=== PATIENT | female | born 2005 ===

== ENCOUNTER 2024-10-01 15:25 | Outpatient (CLI) | payer MEDICAID, SELFPAY | END 2024-10-01 15:26 | disposition home or self-care (01) | LOC: AMB 10-03 10:10 | PROVIDERS: Visit Provider Emergency Medicine | DX: R55 Syncope and collapse (principal); R42 Dizziness and giddiness | CPT/HCPCS: A0425; A0427 ==

== ENCOUNTER 2024-10-01 15:57 | Emergency (ER) | payer MEDICAID, SELFPAY ==
--- OUTSIDE RECORDS SUMMARY | 2024-08-29 11:05 | XMS_ITS | Encounter Summary ---
Author Organization [facility] Address [address] [place] [address] Care Team Providers Care Dietary Clerk Name Role Phone Gerald Page MD Primary Care Provider [phone] Encounter Details Date Type Department Care Team (Latest Contact Info) Description 08/29/2024 11:05 AM CDT Telemedicine [facility] [address] [place] [address] Asaf Arteaga DO [address] [place], [place] [id number] Attention deficit hyperactivity disorder (ADHD), combined type, moderate (HRC) (Primary Dx); Anxiety (HRC); Other specified depressive episodes Social History Tobacco Use Types Packs/Day Years Used Date Smoking Tobacco: Never Passive Smoke Exposure: Never Smokeless Tobacco: Never Alcohol Use Standard Drinks/Week Comments No 0 (1 standard drink = 0.6 oz pur e alcohol) PHQ-2 Answer Date Recorded PHQ-2 Score 5 07/24/2024 Financial Resource Strain Answer Date R ecorded Is it hard for you to pay fo r the very basics like food, housing, medical care or heating? No 10/10/2023 Food Insecurity Answer Date Recorded Does your food run out before you have the money to buy more? No 10/10/2023 Transportation Needs Answer Date Record ed Does a lack of transportatio n keep you from your medical appointments or from getting your medications? No 024 Comments No Sex and Gender Information Value Date Recorded Sex Assigned at Not on file Legal Sex Female 1:51 PM CDT Gender Identity Not on file Sexual Orientation Not on file documented as of this encounter Progress Notes * Asaf Arteaga DO - 08/29/2024 11:05 AM CDT Outpatient Psychiatry Progress Note: Chief Complaint: I have questions about the medication HPI: -Binta is a 19 y.o. 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 She denies any medical history. -The patient is seen alone via tele-video and is in agreement to this arrangement. Pt was recently referred by therapy, after getting an ADHD dx in January 2024. -The patient reports taking Adderall XR 10-15 mg q.a.m. daily. She recently had been taking Zoloft (ineffective) and atomoxetine (ineffective) at low dosing which were stopped on her own over the past 1-2 months, in which patient does have a history of compliance issues with consistency taking daily medications. -The patient reports the biggest concern is her medication management. -The patient denies issues with pain. -The patient reports her sleep is adequate in quality/duration, although delayed sleep onset has been an issue on days taking Adderall XR. -The patient denies SI/HI/AVH. Patient denies any intent/plan and reports having a safety plan in place. -She denies symptoms of micki, social phobia, OCD, agoraphobia, or panic attacks. -The patient says appetite is adequate and eats 3 consistent meals/day. -The patient denies a history of substance or Etoh abuse. Allergies: No Known Allergies PHQ-9: 07/24/2024 9:00 AM 02/15/2024 11:20 AM 10/10/2023 12:20 PM PHQ-9 PHQ-9 Score Total 19 12 4 Q1: Loss of Int/Pleas 2 2 1 Q2: Depressed mood 3 0 1 Q3: Sleep problems 1 2 1 Q4: Tired/Low Energy 2 2 0 Q5: Appetite change 1 0 0 Q6: Feelings of failure 3 3 1 Q7: Concentration Prob 3 3 0 Q8: Slow or Restless 2 0 0 Q9: Thought Self Harm 2 0 0 Date PHQ9 was completed 07/24/2024 CAGE-AID: 0/4 MENTAL STATUS EXAMINATION: Appearance: Appears stated age, Well-groomed, and Casual Sensorium: Alert Orientation: Is oriented to person, place and time Psychomotor: No agitation or retardation Neuromotor: No tics, tremors, cogwheeling, abnormal movements Speech: Regular rhythm, rate, tone, volume Language: Clear, articulation, no accents, St Helenian as first language Mood (subjective report): Okay, managing Affect (objective appearance): Congruent Thought Process (Associations): Goal Directed, linear Thought content: Without delusions, suicidal or homicidal ideation Perception: No evidence of auditory or visual hallucinations Abstraction: Intact Attention & Concentration: Focused, intact Memory (recent/remote): Intact immediate, recent, and remote Knowledge: Average Judgment and Insight: Fair Diagnostic Impressions: 1. Attention deficit hyperactivity disorder (ADHD), combined type, moderate (HRC) 2. Anxiety (HRC) 3. Other specified depressive episodes Other medical issues: Patient denies Assessment & Plan: -Binta is a 19 y.o. 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 Her biggest concern today is her medication management. Patient reports: Difficulty tolerating side effects to Adderall over the past several months which has been worsening. Patient describes at various dosing issues with dysphagia, abdominal/throat discomfort, increase anxiety, mood lability, and insomnia which have allmade taking Adderall XR at any dose difficult. Discussed medications in depth, and agreed to discontinue Adderall XR and start low-dose Vyvanse given its lower side effect profile. Discussed that patient may also benefit from an SSRI medication in the future (previously taking Zoloft) should mood/anxiety become an issue with taking stimulant medications. We will continue to monitor school performance over the upcoming weeks to months with use of Adderall, along with monitoring for any side effects as we titrate the medication. Discussed the importance of compliance, which previously has been an issue with her use of Zoloft. Patient instructed to take 1-2 days off per week to minimize tolerance building with taking stimulant medications. Binta may benefit from individual therapy, and has been seeing a counselor monthly at [facility] and was highly encouraged to continue. Binta understands and agrees with the plan discussed. Patient appears to be low risk for suicide today. Pt has support with her family and several close friends. Plan: -Start Vyvanse 10-30 mg daily for ADHD. -Discontinue Adderall XR 10-15 mg daily for ADHD. -Discussed the indications, risks, benefits, and possible side effects discussed. Verbal informed consent was received from the patient to make the medication changes described above. Pt is understanding and in agreement to the plan today. -Discussed and recommended abstinence from all alcohol and substances use. Plan to monitor for any changes in consumption. -Discussed therapy and pt will continue with her counselor at [facility]. Plan to discuss and offertherapy at next apt. -Orders placed at this visit- Labs/Tests/Referrals: No orders of the defined types were placed in this encounter. -Reviewed crisis plan including calling 911, or presenting to the APS if in a life threatening crisis. Pt understands the crisis plan and knows to activate it if necessary. -Follow-up appointment scheduled in 4-6 weeks. Patient/family will call with questions, side effects, or clinical worsening. Start time: 11:10 a.m. Stop time: 11:30 a.m. I discussed with the patient/parent that this visit is a telehealth visit that will be billed to their insurance. Reviewed potential benefits, risks and confidentiality of telehealth visits. Confirmed patients' current location and contact information. Developed a safety plan to be used in the event of an emergency or safety concerns. Made contingency plan in the event of technical problems. Explained that the appropriateness of telehealth visits is determined by the provider and that patient may need to be seen in clinic in the future. This visit was conducted via video. Location of clinician: clinic Location of patient: home There are potential benefits and risks of telehealth (video or phone) visits that differ from in-person sessions. Confidentiality still applies for telehealth services. It is important to be in a quiet, private space that is free of distractions (including cell phone or other devices) during the session. In the future, if you need to cancel or change your tele-appointment, you must notify the clinic in advance by phone. In the event of technical problems or safety concerns, let's confirm your current location and the best number to reach you at. We should also agree on a safety plan and we will use the emergency contact on file if we get disconnected and I cannot reach you again. As your provider, I may determine that due to certain circumstances, telehealth no longer appropriate and thatfuture appointments should be in person. Data charges may apply if you are not connected to [employer]. Asaf Arteaga DO documented in this encounter Plan of Treatment Upcoming Encounters Date Type Department Care Team (Late st Contact Info) Description 10/08/2024 4:05 PM CDT Telemedicine [facility] Psychiatry [address] [place] [address] Asaf Arteaga DO [address] [place] [address] documented as of this encounter Visit Diagnoses Diagnosis Attention deficit hyperactivity disorder (ADHD), combined type, moderate (HRC)- Primary Anxiety (HRC) Anxiety state, unspecified Other specified depressive episodes documented in this encounter Care Teams Dietary Clerk Relationship Specialty Start Date End Date Gerald Page MD [address] [place] [address] PCP - General Family Practice 05/31/19 documented as of this encounter
[2024-10-01 16:07] VITALS: BP 98/67; PULSE 82; RESP 18; TEMP 36.6; O2SAT 100; BMI 19.2
[2024-10-01 16:32] VITALS: BP 101/74; BP 108/76; BP 97/73; PULSE 71; PULSE 74; PULSE 81
--- OUTSIDE RECORDS SUMMARY | 2024-10-01 16:48 | XMS_ITS | Encounter Summary ---
Author Organization [facility] Address [address] [place] [address] Care Team Providers Care Film Library Clerk Name Role Phone Gerald Page MD Primary Care Provider [phone] Encounter Details Date Type Department Care Team (Late st Contact Info) Description 09/02/2024 [facility] [address] [place] [address] Asaf Arteaga DO [address] [place] [address] Social History Tobacco Use Types Packs/Day Years [...] on file documented as of this encounter Nursing Notes * Campbell Gray - 09/05/2024 9:14 AM CDT Called and ginny appt for 10/08/24. * Maxwell Adams RN - 09/05/2024 8:24 AM CDT Routing to [place] to attempt to schedule once more. Encounter can be closed once appt made or voicemailleft-thanks! * Ivon Avelar - 09/03/2024 3:06 PM CDT LM to schedule appt end September 2024 * Lydia Howard RN - 09/03/2024 11:43 AM CDT Please schedule pt for follow up appt in 4-6 weeks due to Vyvanse dose adjustment. Can be video. Thank you! * Asaf Arteaga DO - 09/03/2024 11:41 AM CDT Vyvanse Rx sent to pharmacy. Recommend f/u appointment when this prescription is completed in 4-6 weeks. We can further adjust dosing of Vyvanse at that time (as required). PM * Maxwell Adams RN - 09/03/2024 11:37 AM CDT Rx prepared as provider noted. Routing to provider. Requested Prescriptions Pending Prescriptions Disp Refills lisdexamfetamine (VYVANSE) 10 MG capsule 60 Capsule 0 Sig: Take 1-2 Capsules (10-20 mg) by mouth daily. * Chelsea Michael LPN - 09/03/2024 11:09 AM CDT See provider message below. Will route to RN to prepare RX for provider. * Chelsea Michael LPN - 09/03/2024 11:08 AM CDT Asaf Arteaga, DO I would recommend we change the prescription of Vyvanse to 10-20 mg daily (60 tabs of 10 mg). Hopefully the insurance will cover this. We can change the dosing for Binta further at her upcoming appointments. PM * Latisha Issa LPN - 09/02/2024 2:25 PM CDT Images from the original note were not included. Routing to provider to either provide answers to questions below or re-prescribe as patient's insurance only allows Quantity Limit: 2 Quantity per 1 Day. * Chelsea Michael LPN - 09/02/2024 8:41 AM CDT EPA completed and sent for Lisdexamfetamine 10 mg most recent chart notes also sent. Will monitor for outcome. * Chelsea Michael LPN - 09/02/2024 8:31 AM CDT Spoke with Pharmacy. EPA was requested for Lisdexamphetamine. Close previous Adderall XR request. * Latisha Issa LPN - 09/02/2024 7:54 AM CDT EPA initiated. documented in this encounter Plan of Treatment Upcoming Encounters Date Type Department Care Team (Late st Contact Info) Description 10/08/2024 4:[address] [facility] [address] [place] [address] Asaf Arteaga DO [address] [place] [address] documented as of this encounter Visit Diagnoses Not on filedocumented in this encounter Care Teams Film Library Clerk Relationship Specialty Start Date End Date Gerald Page MD [address] [place] [address] PCP - General Family Practice 05/31/19 documented as of this encounter
--- OUTSIDE RECORDS SUMMARY | 2024-10-01 16:48 | XMS_ITS | Clinical Summary ---
Author Organization [facility] Address [address] [place] [address] Care Team Providers Care Head Of Biology Name Role Phone Pcp, No Primary Care Provider Unavailabl e Allergies No known active allergies Social History Tobacco Use Types Packs/Day Years Used Date Smoking Tobacco: Never Assessed Interpersonal Safety Answer Date Record ed Are you being hit, kicked, p ushed or yelled at (see row info)? No 05/16/2024 Interpersonal Safety Abuse 12 - 18 Not on file 05/16/2024 Interpersonal Safety Ambulatory Vulnerability No t on file 05/16/2024 Comments No Sex and Gender Information Value Date Recorded Sex Assigned at Not on file Legal Sex Female 4:29 AM SOCKET PULLER Gender Identity Not on file Sexual Orientation Not on file Last Filed Vital Signs Vital Sign Reading Time Taken Comments Blood Pressure 109/70 05/16/2024 4:50 AM SOCKET PULLER Pulse 83 05/16/2024 4:50 AM SOCKET PULLER Temperature 36.9 C (98.5 F) 05/16/2024 4:50 AM SOCKET PULLER Respiratory Rate 16 05/16/2024 4:50 AM SOCKET PULLER Oxygen Saturation 99% 05/16/2024 4:50 AM SOCKET PULLER Inhaled Oxygen Concentration - - Weight 63.5 kg (140 lb) 05/16/2024 4:50 AM SOCKET PULLER Height 167.6 cm (5' 6) 05/16/2024 4:50 AM SOCKET PULLER Body Mass Index 22.6 05/16/2024 4:50 AM SOCKET PULLER Plan of Treatment Health Maintenance Due Date Last Done Comments Tdap 2014 Depression screening for age 12+ 2015 HIV for age 15-65 2018 HPV series for age 9-26 (1 - 3-dose series) 2018 BMI (ht and wt on same day) for age 18+ 2021 Hepatitis C screening for ag e 18-79 2021 Tetanus booster 2023 COVID-19 vaccine series (2023- season) 2024 03/27/2021, 01/11/2021 Pap test for age 21-65 2024 Influenza Vaccine (Season Ended) 2025 Meningococcal series for age 11-21 Aged Out No longer eligible b ased on patient's age to complete this topic Pneumococcal series for age 6-49 Aged Out No longer eligible b ased on patient's age to complete this topic Insurance [id number] [place] [id number] [place] [id number] Care Teams Head Of Biology Relationship Specialty Start Date End Date Pcp, No . PCP - General 05/16/24
--- OUTSIDE RECORDS SUMMARY | 2024-10-01 16:48 | XMS_ITS | Clinical Summary ---
Author Organization [facility] Address [address] [place] [address] Care Team Providers Care Machine Rug Cleaner Name Role Phone Gerald Page MD Primary Care Provider [phone] Source Comments You are receiving this document as you are listed as the primary care provider,follow-up provider, or the patient has been referred to you for consultation.This is in compliance with the Medicare andNation[facility]'S Hospitalcaid EHR Incentive Program,which states Providers who transition their patient to another setting of careor provider of care or refers their patient to another provider of care shouldprovide summary care record for each transition of care or referral. [employer] Allergies No known active allergies Medications * This document contains information received from the source organization and may not represent a complete record from that organization. cyanocobalamin (VITAMIN B12) 1000 MCG tabletIndicatio ns:Vitamin B12 deficiency (HRC) Take 1 Tablet (1,000 mcg) by mouth daily. 90 Tablet 3 4 Active Cholecalciferol (VITAMIN D) 50 MCG (2000 UT) tabletIndicatio ns:Vitamin D deficiency (HRC) Take 1 Tablet by mouth daily. Start after you finish the once weekly vitamin D capsules. 90 Tablet 3 4 Active amphetamine-dex troamphetamine XR (ADDERALL XR) 5 MG 24 hour release capsule Take 2-3 Capsules (10-15 mg) by mouth daily. 90 Capsule 5 Active lisdexamfetamin e (VYVANSE) 10 MG capsule Take 1-2 Capsules (10-20 mg) by mouth daily. 60 Capsule 5 Active lisdexamfetamin e (VYVANSE) 10 MG capsule Take 1-3 Capsules (10-30 mg) by mouth daily. 90 Capsule 5 09/04/19 25 Discontinu ed(*Med change OR same med OR reorder, new dose/direc tions) Active Problems Problem Noted Date Diagnosed Date Generalized anxiety disorder 07/24/2024 Major depressive disorder, recurrent episode, mo derate 07/24/2024 Other specified depressive episodes 02/21/2024 Attention deficit hyperactiv ity disorder (ADHD), combined type, moderate 02/21/2024 Anxiety 02/21/2024 Leukopenia 09/26/2017 Encounters * This document contains information received from the source organization and may not represent a complete record from that organization. Date Type Department Care Team Description 09/02/2024 [facility] Psychiatry [address] [place] [address] Asaf Arteaga DO 08/29/2024 11:05 AM CDT [facility] Psychiat[facility] [address] [place] [address] Asaf Arteaga DO Attention deficit hyperactivity disorder (ADHD), combined type, moderate (HRC) (Primary Dx); Anxiety (HRC); Other specified depressive episodes 07/10/2024 3:35 PM NON DESTRUCTIVE TESTING SCIENTIST [facility]iat[facility] [address] [place] [address] Asaf Arteaga DO Attention deficit hyperactivity disorder (ADHD), combined type, moderate (HRC) (Primary Dx); Anxiety (HRC); Other specified depressive episodes from Last 3 Months Immunizations Immunization Administration Dates Next Due 9vHPV (Gardasil 9) 06/07/2019,11/07/2017 DTP 2003,2003 HepA Ped/Adol (1-18 yrs) 09/18/2020,06/07/2019 HepB Ped/Adol (0-18 yrs) 03/22/2018,10/13/2017,0 08/28/2017 IPV (Polio) 10/13/2017 Influenza IIV4 (Quadrivalent) 0.5mL (49347) 05/16,03/22/2018 MCV4 Menveo 2m.+ (two vial) 06/07/2019, 8 MMR 03/22/2018,11/07/2017 Measles 2003 OPV, Trivalent (Orimune or tOPV) 2003,06/15 Pfizer Monovalent 12+ Purple Top 03/27/2021,12/15 Td (7+ yrs) 09/25/2018 Td Adult, Unspecified Formulation 09/25/2018 Tdap 10/13/2017 Varicella 03/22/2018,11/07/2017 Family History Medical History Relation Name Comments Cataract Negative Family History Glaucoma Negative Family History Macular Degeneration Negative Family History Retinal Detachment Negative Family History Social History Tobacco Use Types Packs/Day Years Used Date Smoking Tobacco: Never Passive Smoke Exposure: Never Smokeless Tobacco: Never Tobacco Cessation:Counseling Given: Not Answered Alcohol Use Standard Drinks/Week Comments No 0 [...] Sign Reading Time Taken Comments Blood Pressure 101/71 10/30/2023 2:41 PM CDT Pulse 79 10/30/2023 2:41 PM CDT Temperature 36.4 C (97.6 F) 10/30/2023 2:41 PM CDT Respiratory Rate 14 10/30/2023 2:41 PM CDT Oxygen Saturation 100% 10/30/2023 2:41 PM CDT Inhaled Oxygen Concentration - - Weight 52.2 kg (115 lb) 11/28/2023 3:07 PM CDT Height 157.5 cm (5' 2) 11/28/2023 3:07 PM CDT Body Mass Index 21.03 11/28/2023 3:07 PM CDT Plan of Treatment Upcoming Encounters Date Type Department Care Team (Late st Contact Info) Description 10/08/2024 4:05 PM CDT Telemedicine [facility] [address] [place] [address] Asaf Arteaga DO [address] [place] [address] Health Maintenance Due Date Last Done Comments Cervical Cancer Screening Due 2003 MenB Immunization Discussion 2003 COVID-19 Vaccine ( season) 2024 03/27/2021, 01/11/2021 Adult Preventive Visit 10/09/2024 , 09/18/2020, 06/07/2019, Additional history exists Chlamydia 10/09/2024 10/10/2023, 06/07/2019 Influenza Vaccine (Season Ended) 2025 06/07/2019, 03/22/2018 DTaP/Tdap/Td Vaccine (6 - Tdap) 09/25/2028 09/25/2018, 09/25/2018, 10/13/2017, Additional history exists Zoster/Shingles Vaccine (1 of 2) 2053 HIV Screening (Preventive Services) Completed 09/25/2017 Hep C Screening (Preventive Services) Completed 09/25/2017 IPV (Polio) Vaccine Completed 10/13/2017, 2003, 2003 HepB Vaccine Completed 03/22/2018, 06/05/2017, 08/28/2017 Varicella Vaccine Completed 03/22/2018, 11/07/2017 HPV Vaccine Completed 06/07/2019, 11/07/2017 MCV4 Vaccine Completed 06/07/2019, 11/07/2017 HepA Vaccine Completed 09/18/2020, 06/07/2019 Tuberculosis Screening Completed 12/06/2022, 2017 Hib Vaccine Aged Out No longer eligi ble based on patient's age to complete this topic Pneumococcal Vaccine Aged Out No long er eligible based on patient's age to complete this topic Procedures Procedure Name Priority Date/Time Associated Diagnosis Comments CHLAMYDIA & GC, URINE (14 YEARS AND OLDER) Routine 10/10/2023 1:59 PM CDT Routine screening for STI (sexually transmitted infection) TB QUANTIFERON GOLD PLUS Routine 12/06/2022 3:12 PM CDT Screening examination for pulmonary tuberculosis HIV 1/2 AG/AB 4TH GEN Routine 09/25/2017 8:37 AM CDT Health examination of defined subpopulation HEPATITIS C ANTIBODY, WITH REFLEX Routine 09/25/2017 8:37 AM CDT Health examination of defined subpopulation from Last 3 Months or Most Recently Relevant to Health Maintenance Results * Chlamydia & GC, Urine (14 Years and Older) (10/10/2023 1:59 PM CDT) Pathologist [facility] Chlamydia Trachomatis STD Not Detected Not Detected 10/10/2023 11:58 PM CDT [facility] N. gonorrhoeae STD Not Detected Not Detected 10/10/2023 11:58 PM CDT [facility] Urine STD (Urine for STD) Non-blood Collection / Unknown 10/10/2023 1:59 PM CDT 10/10/2023 1:59 PM CDT [facility] - 10/10/2023 11:58 PM CDT Test performed by Relationship Executive Mediated Amplification (TMA). us Darlyn MEANS LAB_1 Final Result [facility] [address] [address], [facility] * HIV 1/2 Ag/Ab 4th Generation (09/25/2017 8:37 AM CDT) HIV 1/2 AG/AB 4thGEN Negative (Non Reactive) [facility] Comment:HIV-1 p24 Ag and HIV -1/HIV-2 Ab not detected. 09/25/2017 8:37 AM CDT 09/25/2017 9:28 AM CDT Narrative [facility] - 09/25/2017 1:31 PM CDT Performed at [facility], [address] [place] [id number] us Josh Barrera Jr., PA-C LAB_1 Final Result Performing Organization Address [facility] de Phone Number [facility] [employer] [phone] * HEPATITIS C AB [[id number]] (09/25/2017 8:37 AM CDT) Pathologist [facility] Anti-HCV Negative (Non Reactive) [facility] Comment: Antibodies to HCV not detected. Does not exclude the possibility of exposure to HCV. 09/25/2017 8:37 AM CDT 09/25/2017 9:28 AM CDT Narrative [facility] - 09/25/2017 1:30 PM CDT Performed at [facility], [address] [place] [id number] us Josh Barrera Jr., LINETTE LAB_1 Final Result Performing Organization Address [facility] de Phone Number [facility] [employer] [phone] from Last 3 Months or Most Recently Relevant to Health Maintenance Insurance [facility] [address] [place] [id number] Care Teams Machine Rug Cleaner Relationship Specialty Start Date End Date Gerald Page MD [address] [place] [address] PCP - General Family Practice 05/31/19
--- OUTSIDE RECORDS SUMMARY | 2024-10-01 16:48 | XMS_ITS | Encounter Summary ---
Author Organization Formerly [facility] Address [address] [place] [address] Care Team Providers Care Harpoon Engagement Planning Operator Name Role Phone Gerald Page MD Primary Care Provider [phone] Encounter Details Date Type Department Care Team (Late Contact Info) Description 09/25/2017 Correspondence None No Primary/Referring, Phy MEDICAL EXAM FOR IMMIGRANT Social History Tobacco Use Types Packs/Day Years Used Date Smoking Tobacco: Never Smokeless Tobacco: Never Alcohol Use Standard Drinks/Week Comments No 0 (1 standard drink = 0.6 oz pur e alcohol) Comments Unknown Sex and Gender Information Value Date Recorded Sex Assigned at Not on file Legal Sex Female 1:51 PM CDT Gender Identity Not on file Sexual Orientation Not on file documented as of this encounter Plan of Treatment Upcoming Encounters Date Type Department Care Team (Late Contact Info) Description 10/08/2024 4:05 PM CDT Telemedicine [facility] [address] [facility] [place] [address] Asaf Arteaga DO [address] [place] [address] documented as of this encounter Visit Diagnoses Not on filedocumented in this encounter Care Teams Harpoon Engagement Planning Operator Relationship Specialty Start Date End Date Gerald Page MD [facility][note 3] [place] [address] PCP - General Family Practice 05/31/19 documented as of this encounter
--- OUTSIDE RECORDS SUMMARY | 2024-10-01 16:48 | XMS_ITS | Encounter Summary ---
Author Organization [facility] Address [address] [place] [address] Care Team Providers Care Cloth Printer Name Role Phone Gerald Page MD Primary Care Provider [phone] Encounter Details Date Type Department Care Team (Latest Contact Info) Description 09/25/[address] [address] El Wang MD MEDICAL EXAM/VACCINATION RECORD Social History Tobacco Use Types Packs/Day Years [...] Info) Description 10/08/2024 4:05 PM CDT Telemedicine [facility] [address] [place] [address] Asaf Arteaga DO [address] [place] [address] documented as of this encounter Visit Diagnoses Not on filedocumented in this encounter Care Teams Cloth Printer Relationship Specialty Start Date End Date Gerald Page MD [address] [place] [id number] PCP - General Family Practice 05/31/19 documented as of this encounter
--- NOTE | 2024-10-01 17:19 | CRLHL7_ITS ---
For Patients: As a result of the Century Cures Act, medical imaging exams and procedure reports are released immediately into your electronic medical record. You may view this report before your referring provider. If you have questions, please contact your health care provider. INDICATION: Headaches. TECHNIQUE: CT of the head without contrast. Coronal and sagittal reformats are included. COMPARISON: None. FINDINGS: No CT evidence of acute cortical infarct. No loss of leslie white matter differentiation. No hyperdense vessels to suggest intracranial thrombus. No acute intracranial hemorrhage. No mass effect or midline shift. No hydrocephalus or extra-axial collections. White matter is within normal limits for age. No acute osseous abnormalities. Mastoid air cells and paranasal sinuses are clear. Normal soft tissues. IMPRESSION: IMPRESSION:1. No CT evidence of acute cortical infarct. No acute intracranial hemorrhage. No other acute intracranial findings. Please note that all CT scans at this facility use dose modulation, iterative reconstruction, and/or weight-based dosing when appropriate to reduce radiation dose to as low as reasonably achievable. Dictated by Ricky Christian MD @ 10/01/2024 5:56:39 PM (Electronically Signed)
--- NOTE | 2024-10-01 17:20 | ED_ITS ---
HPI - Syncope General Date Seen: 10/01/24 Chief Complaint: Syncope/Fainted Stated Complaint: Syncope Time Seen by Provider: 10/01/24 16:21 Source: patient and other (Friends) Mode of arrival: EMS Limitations: no limitations History of Present Illness HPI narrative: Patient is a 39-year-old female with no pertinent medical problems presenting to the emergency department for syncopal episode. She is brought in by EMS. She states she was sleeping all day but says this is normal because she has a on even sleep schedule. Due to this she has not eaten or drink much today. Her states her friend came to check on her because she was not answering her phone and mother friend was there patient passed out. She states she has not remember exactly what happened but states she thinks she was only out for bed. States she felt like she is back to normal pretty quickly. Has drinking some fluids since then. Does states she has a mild headache at this time. Does not think she had the headache prior to her fall. Has had the symptoms before and was told she had low iron. I spoke to her friend once they arrive to states that there was a check on the patient because she was answering her phone. When she got there the patient seemed to be acting off and was leaning against her bed. The patient then fell over and landed on the ground. The friend does not know the patient hit her head or not. Says the patient was down for only able and minute and then was back to normal pretty quickly. States she is acting normally at this time. Patient denies chest pain, shortness of breath, weakness, numbness, dizziness, abdominal pain, fevers, chills. Not aware of any recent sick contacts. Related Data Home Medications ?Medication ?Instructions ?Recorded ?Confirmed No Known Home Medications 10/01/2409/13 Allergies Allergy/AdvReac Type Severity Reaction Status Date / Time No Known Drug Allergies Allergy Verified 10/01/24 16:07 Review of Systems Status of ROS: Reports: 10 or more systems reviewed and unremarkable except as noted in History and below [facility] Social History Do you use any of these nicotine containing products: None Second hand tobacco smoke exposure: No How often do you have a drink containing alcohol: never AUDIT-C Alcohol total score: 0 Non-prescribed substance use: denies use Exam Narrative: Exam Narrative: Const: Well-nourished, Well-developed, in mild distress Eyes: PERRL, no conjunctival injection, and symmetrical lids HENT: Atraumatic external nose and ears. Moist mucous membranes. Head atraumatic normocephalic Neck: Symmetric, trachea midline, No thyromegaly. CVS: RRR, No murmurs or gallops. Peripheral pulses 2+ and equal in all extremities RESP: Unlabored respiratory effort. Clear to auscultation bilaterally. GI: Nontender/Nondistended, No rebound or guarding. MSK:Extremities w/o deformity, Normal Active ROM Skin: Warm, Dry. No rashes or lesions. Neuro: Normal Muscle tone, No focal neurological deficits. Psych: Awake, Alert, & Oriented x3. Appropriate mood and affect. Const: Vital Signs, click to edit/add: Vital Signs - 24 hr 10/01/24 16:07 10/01/24 16:32 Temperature 97.9 F Pulse Rate [Pulse Oximeter] 82 Pulse Rate [orthos tatic lying Pulse Oximeter] 71 Pulse Rate [orthos tatic sitting Puls e Oximeter] 74 Pulse Rate [orthos tatic standing Pul se Oximeter] 81 Respiratory Rate 18 Blood Pressure [Ri ght Upper Arm] 98/67 Blood Pressure [or thostatic lying] 97/73 Blood Pressure [or thostatic sitting] 101/74 Blood Pressure [or thostatic standing ] 108/76 Pulse Oximetry 100 Oxygen Delivery Me thod Room Air Course Vital Signs Vital signs: Initial Vital Signs Temperature 97.9 F 10/01/24 16:07 Temperature Source Temporal Artery Scan 10/01/24 16:07 Pulse Rate 82 10/01/24 16:07 Respiratory Rate 18 10/01/24 16:07 Blood Pressure 98/67 10/01/24 16:07 Blood Pressure Mean 77 10/01/24 16:07 Pulse Oximetry 100 10/01/24 16:07 Oxygen Delivery Method Room Air 10/01/24 16:07 Vital Signs Temperature 97.9 F 10/01/24 16:07 Pulse Rate 82 10/01/24 16:07 Respiratory Rate 18 10/01/24 16:07 Blood Pressure 98/67 10/01/24 16:07 Pulse Oximetry 100 10/01/24 16:07 Oxygen Delivery Method Room Air 10/01/24 16:07 Temperature 97.9 F 10/01/24 16:07 Pulse Rate 71 10/01/24 16:32 Respiratory Rate 18 10/01/24 16:07 Blood Pressure 97/73 10/01/24 16:32 Pulse Oximetry 100 10/01/24 16:07 Oxygen Delivery Method Room Air 10/01/24 16:07 MDM - Syncope MDM Narrative Medical decision making narrative: Patient is a 19-year-old female presenting for what sounds like a syncopal episode. She did hit her head and does have a mild headache. Will do CT scan for better evaluation. Will also order an EKG and troponin for evaluation of a possible arrhythmia or other cardiac abnormalities. BMP, CBC, magnesium all also ordered. Patient's EKG shows no concerning abnormalities. Lab work within normal limits. CT scan reviewed by myself the radiologist shows no concerning findings. Orthostatic vital signs showed no concerning abnormalities. He continues to do well at this time. I believe for syncopal episodes likely due to her decreased oral intake today. Believe he is safe for discharge. She is agreeable to this plan Lab Data Labs: Lab Results 10/01/24 Range/Units 17:35 WBC 5.72 (4.50-11.00) K/uL RBC 4.54 (4.00-5.20) m/uL Hgb 13.3 (12.0-16.0) gm/dL Hct 41.5 (33.0-51.0) % MCV 91 (80-100) fL MCH 29 (26-34) pg MCHC 32 (32-36) gm/dL RDW Coeff of Delaney 12.6 (11.5-15.5) % Plt Count 212 (140-440) K/uL Neut % (Auto) 69.8 (42.0-72.0) % Lymph % (Auto) 22.0 (20-44) % Monona % (Auto) 7.0 (0.0-11.0) % Eos % (Auto) 0.7 (0.0-7.0) % Baso % (Auto) 0.5 (0.0-3.0) % Neut # (Auto) 3.99 (1.7-7.0) K/uL Lymph # (Auto) 1.26 (0.90-2.90) K/uL Monona # (Auto) 0.40 (0.00-0.90) K/UL Eos # (Auto) 0.04 (0.00-0.50) K/uL Baso # (Auto) 0.03 (0.00-0.30) K/uL Abs Immat Gran (auto) 0.00 (0.00-0.30) K/uL Imm/Tot Granulo (auto) 0.0 % Sodium 138 (135-149) mmol/L Potassium 4.1 (3.6-5.1) mmol/L Chloride 100 (96-114) mmol/L Carbon Dioxide 27 (20-32) mmol/L Anion Gap 11 (7-15) mEq/L BUN 11 (5-24) mg/dL Creatinine 0.7 (0.5-1.5) mg/dL Estimated Creat Clear 95.58 Estimated GFR 126 ml/min Glucose 117 H (60-115) mg/dL Calcium 10.0 (8.4-10.6) mg/dL Magnesium 1.8 (1.5-2.6) mg/dL Troponin I < 0.01 (0.01-0.04) ng/mL Imaging Data CT scan - head: Radiologist's impression: IMPRESSION:1. No CT evidence of acute cortical infarct. No acute intracranial hemorrhage. No other acute intracranial findings. Please note that all CT scans at this facility use dose modulation, iterative reconstruction, and/or weight-based dosing when appropriate to reduce radiation dose to as low as reasonably achievable. Dictated by Ricky Christian MD @ 10/01/2024 5:56:39 PM ECG Data Attestation: I personally reviewed and interpreted this ECG as follows: Prior ECG tracings: not available for review Interpretation: Normal sinus rhythm, rate of 70 beats per minute, normal intervals, normal axis, no ST or T-wave abnormalities. Discharge Plan Discharge Clinical Impression: Syncope Qualifiers: Syncope type: unspecified Qualified Code(s): R55 - Syncope and collapse Patient Disposition: Home, Self-Care Condition: Stable Instructions: Syncope (DC) Additional Instructions: Make sure to stay well hydrated and to not wait so long to eat each today. Return to emergency department for new or worsening symptoms. Take Tylenol and ibuprofen for your headache. Prescriptions: No Action No Known Home Medications Follow Up/Referrals: Provider,Not a Local [Primary Care Provider, Family Practice] Stand Alone Forms: MyHealth Info Instructions
[2024-10-01 17:28] VITALS: BP 96/73; PULSE 86; RESP 12; O2SAT 99
[2024-10-01 17:42] LABS: Basophils Absolute Auto 0.03 K/uL (0.00-0.30); Basophils Percent Auto 0.5 % (0.0-3.0); Eosinophils Absolute Auto 0.04 K/uL (0.00-0.50); Eosinophils Percent Auto 0.7 % (0.0-7.0); Hematocrit 41.5 % (33.0-51.0); Hemoglobin* 13.3 gm/dL (12.0-16.0); Lymphocytes Absolute Auto 1.26 K/uL (0.90-2.90); Mean Corpuscular HGB Conc 32 gm/dL (32-36); Mean Corpuscular Hemoglobin 29 pg (26-34); Mean Corpuscular Volume 91 fL (80-100); Neutrophils Absolute Auto 3.99 K/uL (1.7-7.0); Neutrophils Percent Auto 69.8 % (42.0-72.0); Platelet Count* 212 K/uL (140-440); RDW Coefficient of Variation % 12.6 % (11.5-15.5); Red Blood Count 4.54 m/uL (4.00-5.20); White Blood Count* 5.72 K/uL (4.50-11.00)
[2024-10-01 17:50] LABS: Slide Review Reflex No
[2024-10-01 17:55] LABS: Chloride* 100 mmol/L (96-114); Potassium* 4.1 mmol/L (3.6-5.1); Sodium* 138 mmol/L (135-149)
[2024-10-01 17:58] LABS: Anion Gap 11 mEq/L (7-15); Blood Urea Nitrogen* 11 mg/dL (5-24); Carbon Dioxide* 27 mmol/L (20-32); Creatinine* 0.7 mg/dL (0.5-1.5); Est. Creatinine Clearance* 95.58; Estimated Glomerular Filt Rate 126 ml/min; Glucose* 117 mg/dL (60-115); Magnesium* 1.8 mg/dL (1.5-2.6)
[2024-10-01 18:11] LABS: Troponin I* < 0.01 ng/mL (0.01-0.04)
== END 2024-10-01 18:31 | disposition home or self-care (01) ==
PROVIDERS: Emergency Provider Student in an Organized Health Care Education/Training Program
DX: R55 Syncope and collapse (principal); R51.9 Headache, unspecified
CPT/HCPCS: 36415; 70450; 80048; 83735; 84484; 85025; 93005; 99284; 99285